=== PATIENT | female | born 1945 | race Caucasian/White ===

== ENCOUNTER 2019-06-29 19:12 | Emergency (ER) | payer OTHER ==
[~2019-06-29] VITALS: Ht 160 cm; Wt 90.7 kg
[2019-06-29] MEDS ORDERED: COUMADIN 5 MG TA5 M1 PO (19:39)
[2019-06-29] MEDS ORDERED: COUMADIN 2 MG TA2 M1 PO (19:41)
[2019-06-29] MEDS ORDERED: COUMADIN 1MG TAB1 M1 PO (19:41)
[2019-06-29] MEDS ORDERED: HYDROCHLOROTHIA25 M2 PO (19:42)
[2019-06-29] MEDS ORDERED: LIPITOR 20 MG T20 M1 PO (19:42)
[2019-06-29] MEDS ORDERED: LISINOPRIL5 MG PO (19:42)
[2019-06-29] MEDS ORDERED: CELEXA20 MG PO (19:43)
[2019-06-29] MEDS ORDERED: NEXIUM40 MG PO (19:43)
[2019-06-29] MEDS ORDERED: OXYCONTIN10 M1 PO (19:44)
[2019-06-29] MEDS ORDERED: TRAZODONE HCL50 MG PO (19:44)
[2019-06-29 20:15] LABS: BASOPHILS 0.6 % (0.0-2.0); HEMATOCRIT 34.1 % (37.0-47.0); HEMOGLOBIN 10.9 gm/dL (12.0-15.0); LYMPHOCYTES 18.5 % (24.0-44.0); MCHC 32.1 g/dL (28.0-37.0); MCV 74.7 fL (80.0-100.0); MONOCYTES 5.8 % (1.0-8.0); PLATELET COUNT 306 thou/uL (150-400); POLYS 73.1 % (36.0-66.0); RBC 4.56 mil/uL (4.20-5.00); RDW 18.5 % (10.5-14.5); WBC 6.9 thou/uL (4.0-11.0)
[2019-06-29 20:23] LABS: ANION GAP 6 mmol/L (7-16); BUN 19 mg/dL (7-18); CALCIUM 10.8 mg/dL (8.5-10.1); CHLORIDE 101 mmol/L (98-107); CO2 30 mmol/L (21-32); CREATININE 0.9 mg/dL (0.6-1.0); GLUCOSE 105 mg/dL (74-106); POTASSIUM 3.5 mmol/L (3.5-5.1); SODIUM 137 mmol/L (136-145)
[2019-06-29 20:28] LABS: URINE BILIRUBIN NEGATIVE (Negative); URINE BLOOD TRACE (Negative); URINE CLARITY CLEAR; URINE COLOR YELLOW; URINE GLUCOSE-RANDOM* NEGATIVE (Negative); URINE KETONES NEGATIVE (Negative); URINE LEUKOCYTES TRACE (Negative); URINE NITRITE NEGATIVE (Negative); URINE PROTEIN (DIPSTICK) NEGATIVE (Negative); URINE SPECIFIC GRAVITY <= 1.005 (1.005-1.035); URINE UROBILINOGEN 0.2 E.U./dl (0.2-1.0)
[2019-06-29 20:28] LABS: ALBUMIN 3.7 g/dL (3.4-5.0); SALICYLATE < 2.8 mg/dL (2.8-20.0); SGOT 23 U/L (15-37); SGPT 23 U/L (30-65); TOTAL BILIRUBIN 0.3 mg/dL (<0.1-1.0); TOTAL PROTEIN 7.7 g/dL (6.4-8.2)
[2019-06-29 20:36] LABS: AMP/METHAMP Negative (Negative); BARBITURATES Negative (Negative); BENZODIAZEPINES Negative (Negative); COCAINE Negative (Negative); METHADONE Negative (Negative); OPIATES Negative (Negative); PCP Negative (Negative)
[2019-06-29 20:39] LABS: INR 4.1; PROTIME 42.4 Seconds (9.3-11.4)
[2019-06-29] MEDS ORDERED: TRAMADOL 50 MG50 MG PO (21:20)
[2019-06-29 21:31] VITALS: BP 153/57
== END 2019-06-29 21:40 | disposition home or self-care (01) ==
LOC: ER 19:12
PROVIDERS: Emergency Medicine
DX: S00.83XA Contusion of other part of head, initial encounter (principal); S90.811A Abrasion, right foot, initial encounter; D68.32 Hemorrhagic disorder due to extrinsic circulating anticoagulants; Z79.899 Other long term (current) drug therapy; Z96.653 Presence of artificial knee joint, bilateral; Z90.49 Acquired absence of other specified parts of digestive tract; Z79.01 Long term (current) use of anticoagulants; Z90.710 Acquired absence of both cervix and uterus; Z98.890 Other specified postprocedural states; W18.30XA Fall on same level, unspecified, initial encounter; Y93.89 Activity, other specified; Y92.89 Other specified places as the place of occurrence of the external cause; Y99.9 Unspecified external cause status